=== PATIENT | female | born 1925 | race African-American/Black ===

== ENCOUNTER 2016-11-11 15:37 | Inpatient (IN) | payer OTHER ==
[~2016-11-11] VITALS: Ht 160 cm; Wt 57.2 kg
[~2016-11-11 15:37] MED LIST: ATOR10TA9 PO; CARV-39 PO; HYDR25TA6 PO; LISI40TA PO
[2016-11-11] MEDS ORDERED: SODIUM CHLORIDE FLUSH 10ML SYR IVF ONE (16:00)
[2016-11-11] MEDS ORDERED: SODIUM CHLORIDE 0.9% 1,000ML IVBOLUS ONE (16:00)
[2016-11-11] MEDS ORDERED: PRAZ1CAP2 PO (16:20)
[2016-11-11] MEDS ORDERED: ALLO100T30 PO (16:20)
[2016-11-11] MEDS ORDERED: COLC0.6T37 PO (16:20)
[2016-11-11] MEDS ORDERED: AMLO5TAB2 PO (16:20)
[2016-11-11] MEDS ORDERED: IRON PO (16:20)
[2016-11-11] MEDS ORDERED: VIT D3 PO (16:20)
[2016-11-11] MEDS ORDERED: COD1CAPS2 PO (16:20)
[2016-11-11] MEDS ORDERED: ONDANSETRON 2MG/ML, 2ML IVPush ONE (17:00)
[2016-11-11] MEDS ORDERED: MORPHINE SULFATE 4 MG/ML, 1ML IVPush PRN (17:00)
[2016-11-11 17:07] LABS: ASPARTATE AMINO TRANSFERASE 45 U/L (15-37); BLOOD UREA NITROGEN 25 mg/dL (7-18)
[2016-11-11] MEDS ORDERED: ONDANSETRON 2MG/ML, 2ML ONE (17:10)
[2016-11-11] MEDS ORDERED: MORPHINE SULFATE 4 MG/ML, 1ML ONE (17:10)
[2016-11-11 17:39] LABS: PATH.CAST-FLAG NOT PRESENT; SPERM-FLAG NOT PRESENT; SRC-FLAG NOT PRESENT; XTAL-FLAG NOT PRESENT; YLC-FLAG NOT PRESENT
[2016-11-11] MEDS ORDERED: ENALAPRILAT 1.25 MG/ML, 2ML IVPush PRN (21:00)
[2016-11-11] MEDS ORDERED: POLYETHYLENE GLYCOL 17 GM PACKET PO PRN (21:00)
[2016-11-11] MEDS ORDERED: ONDANSETRON 2MG/ML, 2ML IVP PRN (21:00)
[2016-11-11] MEDS ORDERED: ACETAMINOPHEN 325 MG TABLET PO PRN (21:00)
[2016-11-11] MEDS ORDERED: BISACODYL 10 MG SUPP PR PRN (21:00)
[2016-11-11 21:02] VITALS: BP 184/73
[2016-11-11] MEDS: SODIUM CHLORIDE 0.9% 1,000 ML IV SCH (21:35)
[2016-11-11] MEDS: CARVEDILOL 25 MG TABLET PO SCH (21:36)
[2016-11-11] MEDS: ATORVASTATIN 10 MG TABLET PO SCH (21:36)
[2016-11-11] MEDS: HEPARIN 5,000 UNITS/ML, 1ML SQ SCH (21:36)
[2016-11-12 01:06] VITALS: BP 152/72
[2016-11-12] MEDS: HEPARIN 5,000 UNITS/ML, 1ML SQ SCH ×3 (04:50→22:10)
[2016-11-12] MEDS: MORPHINE SULFATE 4 MG/ML, 1ML IVPush PRN (05:21)
[2016-11-12 05:23] LABS: ASPARTATE AMINO TRANSFERASE 36 U/L (15-37); BLOOD UREA NITROGEN 24 mg/dL (7-18)
[2016-11-12 07:55] VITALS: BP 177/51
[2016-11-12] MEDS: PRAZOSIN 1 MG CAPSULE PO SCH (08:34)
[2016-11-12] MEDS: ALLOPURINOL 100 MG TABLET PO SCH (08:34)
[2016-11-12] MEDS: AMLODIPINE 5 MG TABLET PO SCH (08:34)
[2016-11-12] MEDS: CHOLECALCIFEROL 1,000 UNIT TABLET PO SCH (08:34)
[2016-11-12] MEDS: CARVEDILOL 25 MG TABLET PO SCH ×2 (08:34→22:10)
[2016-11-12] MEDS: SENNA/DOCUSATE TABLET PO SCH (08:34)
[2016-11-12] MEDS: COLCHICINE 0.6 MG TABLET PO SCH (08:34)
[2016-11-12 12:22] VITALS: BP 145/66
[2016-11-12] MEDS: SODIUM CHLORIDE 0.9% 1,000 ML IV SCH (14:05)
[2016-11-12 22:06] VITALS: BP 138/50
[2016-11-12] MEDS: ATORVASTATIN 10 MG TABLET PO SCH (22:10)
[2016-11-13] MEDS: SODIUM CHLORIDE 0.9% 1,000 ML IV SCH ×2 (01:16→17:00)
[2016-11-13 02:14] VITALS: BP 145/70
[2016-11-13] MEDS: HEPARIN 5,000 UNITS/ML, 1ML SQ SCH ×3 (04:21→21:42)
[2016-11-13 05:00] LABS: BLOOD UREA NITROGEN 22 mg/dL (7-18)
[2016-11-13 05:03] LABS: ASPARTATE AMINO TRANSFERASE 48 U/L (15-37)
[2016-11-13 07:04] VITALS: BP 174/63
[2016-11-13] MEDS: COLCHICINE 0.6 MG TABLET PO SCH (10:17)
[2016-11-13] MEDS: SENNA/DOCUSATE TABLET PO SCH (10:17)
[2016-11-13] MEDS: CHOLECALCIFEROL 1,000 UNIT TABLET PO SCH (10:17)
[2016-11-13] MEDS: PRAZOSIN 1 MG CAPSULE PO SCH (10:17)
[2016-11-13] MEDS: AMLODIPINE 5 MG TABLET PO SCH (10:17)
[2016-11-13] MEDS: ALLOPURINOL 100 MG TABLET PO SCH (10:17)
[2016-11-13] MEDS: CARVEDILOL 25 MG TABLET PO SCH ×2 (10:17→21:42)
[2016-11-13 13:34] VITALS: BP 146/61
[2016-11-13] MEDS ORDERED: DIPHENHYDRAMINE 25 MG CAPSULE PO ONE (17:30)
[2016-11-13] MEDS ORDERED: methylPREDNISolone SOD SUCC 125 MG/2 ML IVPush ONE (18:00)
[2016-11-13 20:45] VITALS: BP 153/53
[2016-11-13] MEDS: ATORVASTATIN 10 MG TABLET PO SCH (21:42)
[2016-11-14 02:57] VITALS: BP 163/67
[2016-11-14 04:51] LABS: BLOOD UREA NITROGEN 16 mg/dL (7-18)
[2016-11-14 04:54] LABS: ASPARTATE AMINO TRANSFERASE 61 U/L (15-37)
[2016-11-14] MEDS: HEPARIN 5,000 UNITS/ML, 1ML SQ SCH ×3 (05:39→19:53)
[2016-11-14] MEDS: MORPHINE SULFATE 4 MG/ML, 1ML IVPush PRN (05:39)
[2016-11-14 07:44] VITALS: BP 181/68
[2016-11-14] MEDS: SENNA/DOCUSATE TABLET PO SCH (09:00)
[2016-11-14] MEDS: COLCHICINE 0.6 MG TABLET PO SCH (09:23)
[2016-11-14] MEDS: ALLOPURINOL 100 MG TABLET PO SCH (09:24)
[2016-11-14] MEDS: CARVEDILOL 25 MG TABLET PO SCH ×2 (09:24→19:53)
[2016-11-14] MEDS: AMLODIPINE 5 MG TABLET PO SCH (09:24)
[2016-11-14] MEDS: PRAZOSIN 1 MG CAPSULE PO SCH (09:24)
[2016-11-14] MEDS: CHOLECALCIFEROL 1,000 UNIT TABLET PO SCH (09:24)
[2016-11-14 11:44] VITALS: BP 131/54
[2016-11-14 16:02] VITALS: BP 136/58
[2016-11-14] MEDS ORDERED: MORPHINE SULFATE 4 MG/ML, 1ML IVPush PRN (18:00)
[2016-11-14] MEDS: SODIUM CHLORIDE 0.9% 1,000 ML IV SCH ×2 (19:53→22:20)
[2016-11-14] MEDS: ATORVASTATIN 10 MG TABLET PO SCH (19:53)
[2016-11-14 20:58] VITALS: BP 152/85
[2016-11-15 02:59] VITALS: BP 166/61
[2016-11-15] MEDS: HEPARIN 5,000 UNITS/ML, 1ML SQ SCH ×2 (05:29→12:25)
[2016-11-15 08:16] VITALS: BP 157/54
[2016-11-15] MEDS: ALLOPURINOL 100 MG TABLET PO SCH (08:44)
[2016-11-15] MEDS: COLCHICINE 0.6 MG TABLET PO SCH (08:44)
[2016-11-15] MEDS: CHOLECALCIFEROL 1,000 UNIT TABLET PO SCH (08:44)
[2016-11-15] MEDS: PRAZOSIN 1 MG CAPSULE PO SCH (08:44)
[2016-11-15] MEDS: SENNA/DOCUSATE TABLET PO SCH (08:44)
[2016-11-15] MEDS: CARVEDILOL 25 MG TABLET PO SCH (08:44)
[2016-11-15] MEDS: AMLODIPINE 5 MG TABLET PO SCH (08:44)
[2016-11-15] MEDS: SODIUM CHLORIDE 0.9% 1,000 ML IV SCH (11:40)
[2016-11-15 13:10] VITALS: BP 114/61
== END 2016-11-15 13:59 | disposition hospice, home (50) | DRG 374 ==
LOC: ED 19:11 → EDIP 19:48 → 3NW 20:48
PROVIDERS: ADMIT Internal Medicine; ATTEND Internal Medicine
DX: C18.9 Malignant neoplasm of colon, unspecified (principal); E43 Unspecified severe protein-calorie malnutrition; N17.0 Acute kidney failure with tubular necrosis; I31.3 Pericardial effusion (noninflammatory); K56.60 Unspecified intestinal obstruction; I13.0 Hypertensive heart and chronic kidney disease with heart failure and stage 1 through stage 4 chronic kidney disease, or unspecified chronic kidney disease; N18.4 Chronic kidney disease, stage 4 (severe); R18.8 Other ascites; C78.7 Secondary malignant neoplasm of liver and intrahepatic bile duct; C78.00 Secondary malignant neoplasm of unspecified lung; C79.11 Secondary malignant neoplasm of bladder; Z51.5 Encounter for palliative care; D64.9 Anemia, unspecified; E55.9 Vitamin D deficiency, unspecified; Z66 Do not resuscitate; E78.5 Hyperlipidemia, unspecified; I35.1 Nonrheumatic aortic (valve) insufficiency; I50.9 Heart failure, unspecified; M19.90 Unspecified osteoarthritis, unspecified site; Z90.710 Acquired absence of both cervix and uterus; Z91.041 Radiographic dye allergy status; Z91.018 Allergy to other foods
CPT/HCPCS: 36415; 74176; 80053; 81001; 82140; 83605; 83690; 85025; 93005; 96361; 96374; 96375; J1644; J2405; J7030